=== PATIENT | male | born 1995 | race Asian ===

== ENCOUNTER 2016-11-25 04:09 | Emergency (ER) | payer OTHER ==
[~2016-11-25] VITALS: Ht 177.8 cm; Wt 86.1 kg
[2016-11-25 04:25] VITALS: TEMP 37.6; Ht 177.8 cm; Wt 86.1 kg
--- NOTE | 2016-11-25 04:42 | EMERGENCY ROOM VISIT NOTE ---
History Report prepared by Yi: Larry Olsen Under the Supervision of: Dr. Joselo Langley M.D. First contact with patient: 04:34 Chief Complaint: COUGH Stated Complaint: COUGHING,FEVER,FEELING TIRED History of Present Illness The patient is a 20 year old male who presents to the Emergency Room with complaints of a cough that began 2 months ago. He was recently started on antibiotics yesterday. He denies any nausea, vomiting, or loss of consciousness. He has not received an x-ray. He is not taking any other medications. He notes it is hard to breath when it is cold. Source of History: patient Onset: 2 months ago Position: other (Respiratory System) Symptom Intensity: moderate Quality: other (Cough) Timing: intermittent Modifying Factors (Worsening): other (Cold) Associated Symptoms: No LOC, No nausea, No vomiting Review of Systems See HPI for pertinent positives & negatives. A total of 10 systems reviewed and were otherwise negative. Past Medical & Surgical Medical Problems: (1) No Known Active Medical Problems Family History Patient reports no known family medical history. Social History Smoking Status: Current Every Day Smoker Smokeless Tobacco Use: No Marital Status: single Housing Status: lives with roommate Occupation Status: student Current/Historical Medications Scheduled Azithromycin (Zithromax Z-Jack), 1 PKT PO UD Allergies Coded Allergies: Cephalosporins (Verified Allergy, Unknown, UNKNOWN, 11/25/16) Penicillins (Verified Allergy, Unknown, UNKNOWN, 11/25/16) Physical Exam Vital Signs Date Time Temp Pulse Resp B/P (MAP) Pulse Ox O2 Delivery O2 Flow Rate FiO2 11/25/16 05:54 78 18 135/84 98 Room Air 11/25/16 04:25 37.6 93 19 147/90 92 Room Air Physical Exam GENERAL: Patient is uncomfortable appearing and in mild acute distress. HEENT: No acute trauma, normocephalic atraumatic, mucous membranes moist, no nasal congestion, no scleral icterus. NECK: No stridor, no adenopathy, no meningismus, trachea is midline. LUNGS: Persistent hacking cough. Decreased breath sounds on the left side. Mild wheezing throughout. HEART: Regular rate and rhythm. No murmurs, rubs, gallops appreciated. ABDOMEN: Soft, nontender, bowel sounds positive, no masses appreciated, no peritonitis. BACK: No midline tenderness, no CVA tenderness EXTREMITIES: Normal motion all extremities, no cyanosis, no edema. NEUROLOGIC: Alert and oriented, no acute motor or sensory deficits, no focal weakness, cranial nerves grossly intact. SKIN: No rash, no jaundice, no diaphoresis. Medical Decision & Procedures ER Provider Diagnostic Interpretation: X ray results are stated below per my interpretation: Chest: 1 view: No infiltrate, no effusion, normal cardiac border. Laboratory Results 11/25/16 05:10 Red Blood Count 5.53, Mean Corpuscular Volume 83.2, Mean Corpuscular Hemoglobin 31.3, Mean Corpuscular Hemoglobin Concent 37.6, Mean Platelet Volume 9.9, Neutrophils (%) (Auto) 56.5, Lymphocytes (%) (Auto) 20.3, Monocytes (%) (Auto) 22.2, Eosinophils (%) (Auto) 0.2, Basophils (%) (Auto) 0.4, Neutrophils # (Auto ) 3.23, Lymphocytes # (Auto) 1.16, Monocytes # (Auto) 1.27, Eosinophils # (Auto ) 0.01, Basophils # (Auto) 0.02 11/25/16 05:10 Test 11/25/16 05:10 White Blood Count 5.71 K/uL (4.8-10.8) Red Blood Count 5.53 M/uL (4.7-6.1) Hemoglobin 17.3 g/dL (14.0-18.0) Hematocrit 46.0 % (42-52) Mean Corpuscular Volume 83.2 fL (80-100) Mean Corpuscular Hemoglobin 31.3 pg (25-34) Mean Corpuscular Hemoglobin Concent 37.6 g/dl (32-36) Platelet Count 148 K/uL (130-400) Mean Platelet Volume 9.9 fL (7.4-10.4) Neutrophils (%) (Auto) 56.5 % Lymphocytes (%) (Auto) 20.3 % Monocytes (%) (Auto) 22.2 % Eosinophils (%) (Auto) 0.2 % Basophils (%) (Auto) 0.4 % Neutrophils # (Auto) 3.23 K/uL (1.4-6.5) Lymphocytes # (Auto) 1.16 K/uL (1.2-3.4) Monocytes # (Auto) 1.27 K/uL (0.11-0.59) Eosinophils # (Auto) 0.01 K/uL (0-0.5) Basophils # (Auto) 0.02 K/uL (0-0.2) RDW Standard Deviation 36.6 fL (36.4-46.3) RDW Coefficient of Variation 12.0 % (11.5-14.5) Immature Granulocyte % (Auto) 0.4 % Immature Granulocyte # (Auto) 0.02 K/uL (0.00-0.02) D-Dimer 530 ug/L FEU (0-500) Anion Gap 7.0 mmol/L (3-11) Est Creatinine Clear Calc Drug Dose 111.5 ml/min Estimated GFR () 112.2 Estimated GFR (Non- 96.8 BUN/Creatinine Ratio 8.8 (10-20) Calcium Level 8.4 mg/dl (8.5-10.1) Laboratory results as reviewed by me. Medications Administered Medications (Trade) Dose Ordered Sig/Felix Route Start Time Stop Time Status Last Admin Dose Admin Hydrocodone Bit/ Homatropine Methylb (Hycodan Syrup) 10 ml NOW STAT PO 11/25/16 05:00 11/25/16 05:02 DC 11/25/16 05:08 10 ML Albuterol/ Ipratropium (Duoneb) 3 ml NOW STAT INH 11/25/16 05:36 11/25/16 05:37 DC 11/25/16 05:53 3 ML ED Course 0434: The patient was evaluated in room B8. A complete history and physical exam was performed. 0730: The patient was signed out to Dr. Fuentes at the change in shifts. Medical Decision Differential: Infectious, Reactive Airway Disease, Pneumonia, Pneumothorax, COPD , CHF, ACS, Pulmonary Embolism, TB, MSK, GI, Dissection, amongst other etiologies entertained. Medication Reconcilliation Current Medication List: was personally reviewed by me Blood Pressure Screening Patient's blood pressure: Elevated blood pressure Blood pressure disposition: Elevated BP felt to be situational Impression Primary Impression: Persistent cough Additional Impression: Bronchitis Scribe Attestation The scribe's documentation has been prepared under my direction and personally reviewed by me in its entirety. I confirm that the note above accurately reflects all work, treatment, procedures, and medical decision making performed by me. Departure Information Dispostion Home / Self-Care Referrals [facility] Patient Instructions [facility] Additional Instructions You should follow up with your primary care provider for further evaluation. Use inhaler as needed every 4 hours for cough. Avoid excessive exertion. Keep well hydrated and get plenty of sleep. You have received a narcotic cough medication. These medications may cause drowsiness and should not be used with other sedative medications. Do not drive , drink alcohol, perform dangerous activities, nor make important decisions after taking these medications. technician terminal and repeater use or inappropriate use may lead to addiction. Finish your antibiotic. Problem Qualifiers
[2016-11-25] MEDS ORDERED: HYDROCODONE/HOMATROPINE SYRUP 5MG/1.5MG 5ML UDP PO STA (05:00)
[2016-11-25] MEDS ORDERED: AZITTAB PO (05:02)
[2016-11-25] MEDS ORDERED: ALBUT/IPRATROP 3MG/0.5MG NEB 3 ML VIAL INH STA (05:36)
[2016-11-25 05:41] LABS: BASO % 0.4 %; BASO ABS # 0.02 K/uL (0-0.2); COMPLETE YES; EOS % 0.2 %; IG% 0.4 %; LYMPH % 20.3 %; LYMPH ABS # 1.16 K/uL (1.2-3.4); MEAN CELL VOLUME 83.2 fL (80-100); MEAN CORPUSCULAR HEMOGLOBIN 31.3 pg (25-34); MEAN CORPUSCULAR HGB CONC 37.6 g/dl (32-36); MEAN PLATELET VOLUME 9.9 fL (7.4-10.4); MONO % 22.2 %; NEUT % 56.5 %; PLATELET COUNT 148 K/uL (130-400); RED BLOOD COUNT 5.53 M/uL (4.7-6.1); WHITE BLOOD COUNT 5.71 K/uL (4.8-10.8)
[2016-11-25 06:04] LABS: BUN/CREATININE RATIO 8.8 (10-20); CALCIUM 8.4 mg/dl (8.5-10.1); CREATININE 1.1 mg/dl (0.60-1.40); POTASSIUM 3.5 mmol/L (3.5-5.1)
[2016-11-25] MEDS ORDERED: DEXAMETHASONE SOD INJ 4 MG/ML VIAL IV STA (06:49)
[2016-11-25] MEDS ORDERED: HYCODAN 60ML BOTTLE HOMEPACK PO ONE ×2 (07:00→09:15)
[2016-11-25] MEDS ORDERED: ALBUTEROL HFA 8 GM INHALER INH ONE (07:00)
[2016-11-25] MEDS ORDERED: OPTIRAY 320 IV PRN (07:30)
--- NOTE | 2016-11-25 07:37 | DIAGNOSTIC IMAGING REPORT ---
SINGLE VIEW CHEST CLINICAL HISTORY: Cough. FINDINGS: An AP, portable, upright chest radiograph is obtained. No prior studies are available for comparison at the time of dictation. The examination is mildly degraded by portable technique and patient rotation. The cardiomediastinal silhouette is unremarkable. The lungs and pleural spaces are clear. No pneumothorax is seen. The bony thorax is grossly intact. IMPRESSION: No active disease in the chest. Electronically signed by: Ho Lewis M.D. 11/25/2016 7:36 AM Dictated Date/Time: 11/25/2016 7:35 AM
--- NOTE | 2016-11-25 07:50 | DIAGNOSTIC IMAGING REPORT ---
(CHEST FOR PE) ANGIO WITH CT DOSE: 382.02 mGy.cm HISTORY: 20 years-old Male with acute cough and possible TB exposure. TECHNIQUE: Multiple CTA images of the chest were obtained after the intravenous administration of 93 ml Optiray 320. Coronal and sagittal MIPS were obtained from the axial data set and were submitted for review. A dose lowering technique was utilized adhering to the principles of ALARA. COMPARISON: Chest radiograph 11/25/2016 FINDINGS: CTA: There is adequate opacification of the pulmonary arteries to the level of the segmental branches without convincing evidence of acute pulmonary embolism. The subsegmental branches are not well seen secondary to contrast bolus timing and respiratory motion. The thoracic aorta is normal in course and caliber. Heart size is normal. CT CHEST: No axillary or mediastinal adenopathy by CT size criteria. There are scattered groundglass and tree-in-bud nodular opacities of the inferior segment lingula and basal lower lobes bilaterally with associated mild bronchial wall thickening in these distributions. Similar changes are seen to lesser extent within the right upper lobe. There is no pneumothorax or pleural effusion. The imaged upper abdominal structures are normal. The osseous structures appear intact. IMPRESSION: 1. No acute aortic pathology or evidence of pulmonary thromboembolic disease. There is however limited evaluation of the subsegmental arterial branches secondary to contrast bolus timing and respiratory motion. 2. Scattered groundglass and tree-in-bud nodular opacities of the lung bases and right upper lobe with associated mild bronchial wall thickening in these distributions is compatible with infectious bronchiolitis with bronchitis. No lobar airspace consolidations. Primary tuberculosis could have a similar appearance. Correlate with clinical history and sputum analysis. The above report was generated using voice recognition software. It may contain grammatical, syntax or spelling errors. Electronically signed by: Bebo Orlando M.D. 11/25/2016 7:49 AM Dictated Date/Time: 11/25/2016 7:43 AM
--- NOTE | 2016-11-25 08:58 | EMERGENCY ROOM VISIT NOTE ---
ED Visit Note First contact with patient: 08:46 20-year-old male with a cough and low-grade fever was fully evaluated by Dr. Langley and picked up by me at change of shift. D-dimer was minimally elevated and therefore a CT was obtained. That did not reveal a PE but has a questionable appearance of early TB. More likely the patient has acute bronchitis. The patient has no night sweats. The patient was in [place] approximately 3-4 days ago. He has no known TB exposure. The patient states that he received a TB vaccination last year. At this point, I believe the likelihood of TB is extremely low. The patient will be followed at [facility]. In the meantime he will continue taking Zithromax and using an inhaler.
[2016-11-25 09:28] VITALS: BP 141/85; PULSE 92; O2SAT 93
== END 2016-11-25 09:30 | disposition home or self-care (01) ==
LOC: C.EDB 04:12
DX: J40 Bronchitis, not specified as acute or chronic (principal); F17.210 Nicotine dependence, cigarettes, uncomplicated